=== PATIENT | female | born 1960 | race Caucasian/White ===

== ENCOUNTER 2017-08-28 13:08 | Outpatient (CLI) | payer OTHER ==
--- NOTE | 2017-08-28 15:25 | MMO ---
BILATERAL DIGITAL SCREENING MAMMOGRAMS: Date: 08/28/17 This patient's mammogram was interpreted with the assistance of computer-aided detection. Comparison made with exams 05/28/16, 05/24/15, and 03/23/13. FINDINGS: There are scattered fibroglandular densities. No suspicious masses, calcifications, or architectural distortion are seen. IMPRESSION: BIRADS 1: Negative Annual screening mammography is recommended. POS: YINKA
== END 2017-08-28 13:09 | disposition home or self-care (01) ==
LOC: SCSMAMMO 13:08
PROVIDERS: ATTEND Family Medicine
DX: Z12.31 Encounter for screening mammogram for malignant neoplasm of breast (principal)
CPT/HCPCS: 77067; G0202

== ENCOUNTER 2018-08-31 11:19 | Outpatient (CLI) | payer OTHER ==
--- NOTE | 2018-08-31 14:08 | MMO ---
BILATERAL SCREENING MAMMOGRAM: History: 57-year-old female for screening mammography. Comparison: 08-28-17, 05-28-15, 05-24-15 FINDINGS: Bilateral MLO and CC views of the breast show scattered fibroglandular breast tissue. There is no anastasiia dence of suspicious mass, suspicious cluster of microcalcifications or areas of architectural distort ion. This study is interpreted with the assistance of computer aided detection. IMPRESSION: BIRADS category 1 - negative. Annual screening mammography is recommended. POS: YINKA
== END 2018-08-31 11:20 | disposition home or self-care (01) ==
LOC: SCSMAMMO 11:19
PROVIDERS: ATTEND Family Medicine
DX: Z12.31 Encounter for screening mammogram for malignant neoplasm of breast (principal)
CPT/HCPCS: 77067

== ENCOUNTER 2019-10-14 08:08 | Outpatient (CLI) | payer OTHER ==
--- NOTE | 2019-10-14 10:31 | ULT ---
TRANSABDOMINAL AND TRANSVAGINAL PELVIC ULTRASOUND WITH CARDENAS SCALE AND COLOR FLOW AND SPECTRAL DOPPLER IMAGING: HISTORY: Bilateral lower pelvic pain and heavy and irregular periods. FINDINGS: The uterus measures 8.7 x 3.4 x 4.3 cm with a 5 x 4 x 8 mm echogenic focus in the right side of the f undus consistent with fibroid. The endometrium measures 6 mm in thickness. The right ovary measures 1.8 x 1.2 x 1.2 cm and the left ovary measures 1.8 x 1.4 x 1.3 cm. Flow is demonstrated to both ovaries. No free fluid is seen. Nabothian cysts are noted in the cervix. IMPRESSION: Findings suspicious for a small uterine fibroid. POS: CAITLIN
== END 2019-10-14 08:09 | disposition home or self-care (01) ==
LOC: SCSULT 08:08
PROVIDERS: ATTEND Family Medicine
DX: N94.6 Dysmenorrhea, unspecified (principal)
CPT/HCPCS: 76856